=== PATIENT | male | born 1965 | race Caucasian/White ===

== ENCOUNTER → 2017-06-14 | Outpatient (CLI) | payer OTHER ==
[~2017-06-14] MED LIST: ALEVE220 MG PO; ALLERGY10 MG PO; ASPIRIN325 MG PO; HYDROCODONE BIT1 T11 PO; MEDROL DOSEPAK4 MG PO; NAPROSYN500 MG PO; PRILOSEC20 M2 PO; PRILOSEC20 MG PO; VITAMIN B121000 MC2 PO; ZANTAC 150150 MG PO
--- NOTE | ~2017-06-14 | PROC NOTE ---
[place], [place] PROCEDURE NOTE NAME: DICK NEFF UNIT #: [id number] ROOM: DOCTOR: IVY PFEIFFER BIRTHDATE: [birth year] DOS: 06/14/2017 REFERRING PHYSICIAN: Dr. Sullivan RADIOLOGIST: HISTORY OF PRESENT ILLNESS: The patient is a 51-year-old male who was referred for MBS by GI doctor due to frequent coughing during p.o. patient denied difficulty swallowing; however, he endorsed frequent coughing/throat clearing while eating. He felt that this occurs more with foods than liquids. He noted that he can begin coughing even when smelling foods. He also reported that the coughing continues throughout each meal, but stops when he has finished eating. He denied choking, recent weight loss, changes to his speech/voice, nasal regurgitation and odynophagia. He denied changes to his diet, but reported that he seems to be eating less in general. The patient endorsed occasional sticking sensation (mid chest) and occasional reflux for which he manages with Prilosec. The patient denied any other recent medical changes. GENERAL COMMENTS: The patient remained awake, alert and cooperative throughout this evaluation. ORAL MECHANISM/MOTOR SPEECH EXAM: Symmetry, strength, coordination, range of motion and accuracy of movement of upper/lower face, lips, jaw, tongue and palate were within functional limits. The patient with upper dentures and no lower dentition. Speech comprehensibility was 100%. AMRs/SMRs were within normal limits. MBSS METHODS: This exam was viewed in the lateral plane. The patient self fed the following barium impregnated consistencies: Single sips of thin liquids via cup x 3, teaspoons of pureed x 3 and bite of course solids x 1. ORAL PHASE: Adequate bolus acceptance with no anterior loss. AP bolus transit was timely and adequate. Mastication mildly prolonged, but complete. No oral residue appreciated. PHARYNGEAL PHASE: Initiation of the swallow response was timely. HLE was adequate in both superior and anterior planes with subsequent adequate epiglottic retroflexion. No aspiration or penetration was observed with any consistencies. However, the patient began throat clearing with trials of puree. This false positive coughing/throat clearing continued throughout length of exam; however, no contrast was observed in the pharynx or airway when coughing occurred, with the exception of trace residue maintained in vallecula x 1. This cleared with an additional swallow. UES unremarkable. AP ESOPHAGEAL SCREENING: The patient was turned AP and took bite of pureed. Bolus transit through distal esophagus appeared generally slow; however, no evidence of bolus redirection observed. [place], [place] PROCEDURE NOTE NAME: DICK NEFF UNIT #: [id number] ROOM: DOCTOR: IVY PFEIFFER BIRTHDATE: [birth year] IMPRESSION: The patient presents with normal oropharyngeal swallowing function with no aspiration/penetration across consistencies. However, he did present with frequent throat clearing throughout exam despite lack of contrast in pharynx or airway. Recommend additional GI followup to further evaluate. RECOMMENDATIONS: 1. Continue current diet. 2. Standard aspiration precautions, fully upright, awake and alert for all p.o., small bites/sips, oral care at least b.i.d. 3. Further GI evaluation. PLAN OF CARE: No further [employer] followup is indicated at this time. Thank you for consulting. Please contact the [employer] Department at [phone] with any questions/concerns. Ivy Gooden CM:PROCNOTE:PROCEDURE NOTE [id number] IVY PFEIFFER
== END ==
LOC: RAD 08:45
DX: R05 Cough (principal)

== ENCOUNTER 2017-11-13 03:29 | Emergency (ER) | payer OTHER ==
[~2017-11-13] VITALS: Ht 187.9 cm; Wt 81.6 kg
[2017-11-13 04:34] LABS: BASO # 0.1 10*3/uL (0.0-0.1); BASO % 1.1 % (0.0-1.0); EOS % 0.9 % (1.0-4.0); HEMATOCRIT 42.6 % (42.0-52.0); HEMOGLOBIN 13.8 g/dl (14.0-18.0); LYMPH # 1.6 10*3/uL (1.3-4.4); LYMPH % 34.1 % (27.0-41.0); MEAN CELL VOLUME 91.6 fl (80.0-94.0); MEAN CORPUSCULAR HGB 29.7 pg (27.0-31.0); MEAN CORPUSCULAR HGB CONC 32.4 g/dl (33.0-37.0); MONO # 0.3 10*3/uL (0.1-1.0); MONO % 6.8 % (3.0-9.0); NEUT # 2.6 10*3/uL (2.3-7.9); NEUT % 56.4 % (47.0-73.0); PLATELET COUNT AUTOMATED 134 10*3/uL (130-400); RED BLOOD COUNT 4.65 10*6/uL (4.50-5.90); RED CELL DISTRI WIDTH 13.1 % (0-14.5); WHITE BLOOD COUNT 4.6 10*3/uL (4.8-10.8)
[2017-11-13 04:49] LABS: ALBUMIN 3.9 gm/dl (3.1-4.5); ALKALINE PHOSPHATASE 63 U/L (45-117); BUN 17 mg/dl (7-24); CHLORIDE 107 mmol/L (98-107); CREATININE 1.23 mg/dL (0.70-1.30); LIPASE 162 U/L (73-393); POTASSIUM 3.3 mmol/L (3.5-5.1); SGOT/AST 11 IU/L (3-35); SGPT/ALT 17 U/L (12-78); SODIUM 143 mmol/L (136-145); TOTAL PROTEIN 6.9 gm/dL (6.4-8.2)
[2017-11-13 06:59] LABS: BILIRUBIN 1+ (NEGATIVE); BLOOD 3+ (NEGATIVE); CLARITY CLOUDY (CLEAR); COLOR YELLOW (YELLOW); GLUCOSE NEGATIVE (NEGATIVE); KETONE NEGATIVE (NEGATIVE); LEUKO ESTERASE NEGATIVE (NEGATIVE); NITRITE POSITIVE (NEGATIVE); PH 5.5 (5.0-9.0); SPECIFIC GRAVITY >= 1.030 (1.005-1.030)
[2017-11-13 07:15] LABS: MUCOUS 3+; RBC TNTC rbc/hpf (0-2)
== END 2017-11-13 07:40 | disposition short-term general hospital (02) ==
LOC: ED 03:29
PROVIDERS: Emergency Medicine Emergency Medical Services
DX: N20.1 Calculus of ureter (principal); N23 Unspecified renal colic; Z79.899 Other long term (current) drug therapy

== ENCOUNTER → 2017-11-27 | Outpatient (CLI) | payer OTHER | END | disposition home or self-care (01) | LOC: RAD 09:14 | DX: N20.0 Calculus of kidney (principal) ==

== ENCOUNTER → 2017-12-13 | Outpatient (CLI) | payer OTHER ==
[2017-12-13 10:21] LABS: BASO # 0.1 10*3/uL (0.0-0.1); BASO % 1.2 % (0.0-1.0); EOS # 0.1 10*3/uL (0.0-0.4); EOS % 1.5 % (1.0-4.0); HEMATOCRIT 42.2 % (42.0-52.0); HEMOGLOBIN 13.6 g/dl (14.0-18.0); LYMPH # 1.3 10*3/uL (1.3-4.4); LYMPH % 32.8 % (27.0-41.0); MEAN CELL VOLUME 92.1 fl (80.0-94.0); MEAN CORPUSCULAR HGB 29.7 pg (27.0-31.0); MEAN CORPUSCULAR HGB CONC 32.2 g/dl (33.0-37.0); MEAN PLATELET VOLUME 10.1 fl (9.6-12.3); MONO # 0.3 10*3/uL (0.1-1.0); MONO % 7.6 % (3.0-9.0); NEUT # 2.3 10*3/uL (2.3-7.9); NEUT % 56.7 % (47.0-73.0); PLATELET COUNT AUTOMATED 155 10*3/uL (130-400); RED BLOOD COUNT 4.58 10*6/uL (4.50-5.90); RED CELL DISTRI WIDTH 13.1 % (0-14.5); WHITE BLOOD COUNT 4.1 10*3/uL (4.8-10.8)
[2017-12-13 10:45] LABS: ALBUMIN 3.8 gm/dl (3.1-4.5); ALKALINE PHOSPHATASE 68 U/L (45-117); BUN 8 mg/dl (7-24); CHLORIDE 107 mmol/L (98-107); POTASSIUM 3.6 mmol/L (3.5-5.1); SGOT/AST 8 IU/L (3-35); SGPT/ALT 22 U/L (12-78); SODIUM 141 mmol/L (136-145); T3 UPTAKE 35 % (31-39); THYROXINE (T4) TOTAL 7.6 ug/dl (4.5-12.1); TOTAL PROTEIN 7.1 gm/dL (6.4-8.2)
[2017-12-13 11:33] LABS: BILIRUBIN NEGATIVE (NEGATIVE); BLOOD NEGATIVE (NEGATIVE); CLARITY CLEAR (CLEAR); COLOR YELLOW (YELLOW); GLUCOSE NEGATIVE (NEGATIVE); KETONE NEGATIVE (NEGATIVE); LEUKO ESTERASE NEGATIVE (NEGATIVE); NITRITE NEGATIVE (NEGATIVE); PH 5.5 (5.0-9.0); SPECIFIC GRAVITY 1.025 (1.005-1.030); UROBILINOGEN 0.2 E.U./dl (0.2-1.0)
[2017-12-13 11:44] LABS: MUCOUS TRACE
[2017-12-20 18:03] LABS: BUSHITE 0.08 ratio (0.00-3.00); CALCIUM, URINE 3.4 mg/dL (Not Estab.); CALCIUM, URINE 60.4 mg/24 hr (100.0-300.0); CITRIC ACID (CITRATE) 451 mg/24 hr (320-1240); CREATININE, URINE 1372.1 mg/24 hr (1000.0-2000.0); CREATININE, URINE 77.3 mg/dL (Not Estab.); MAGNESIUM, URINE <1.4 mg/dL (Not Estab.); MONOSODIUM URATE 0.37 ratio (0.00-4.00); OSMOLALITY, URINE 231 (300-900); SODIUM, URINE 26 mmol/L (Not Estab.); SODIUM, URINE 46 (58-337); STRUVITE 0.01 ratio (0.00-1.00); URIC ACID 1.38 ratio (0.00-1.20); URINE VOLUME 1775 mL/24 hr (800-1800); URINE VOLUME (PRESERVATIVE) 1775 mL/24 hr (800-1800); pH 24 HR URINE 5.6 (.)
== END | disposition home or self-care (01) ==
LOC: LAB 09:52
PROVIDERS: Urology
DX: D40.0 Neoplasm of uncertain behavior of prostate (principal); N20.0 Calculus of kidney; Z79.899 Other long term (current) drug therapy

== ENCOUNTER → 2018-08-12 | Outpatient (CLI) | payer OTHER | END | disposition home or self-care (01) | LOC: US 16:41 | DX: N28.89 Other specified disorders of kidney and ureter (principal); Z87.442 Personal history of urinary calculi ==

== ENCOUNTER → 2020-12-13 | Outpatient (CLI) | payer OTHER ==
[2020-12-13 15:34] LABS: BILIRUBIN Negative (Negative); BLOOD Negative (Negative); CLARITY Clear (Clear); COLOR Dark Yellow (Yellow); GLUCOSE Negative (Negative); KETONE Trace (Negative); LEUKO ESTERASE Negative (Negative); NITRITE Negative (Negative); PH 5.5 (4.5-8.0); SPECIFIC GRAVITY 1.025 (1.001-1.030)
[2020-12-13 15:36] LABS: BASO % 0.6 % (0.0-1.0); EOS # 0.1 10*3/uL (0.0-0.4); HEMATOCRIT 41.2 % (42.0-52.0); LYMPH # 1.4 10*3/uL (1.3-4.4); MEAN CORPUSCULAR HGB 30.2 pg (27.0-31.0); MEAN CORPUSCULAR HGB CONC 32.5 g/dl (33.0-37.0); MEAN PLATELET VOLUME 9.8 fl (9.6-12.3); MONO # 0.4 10*3/uL (0.1-1.0); MONO % 5.6 % (3.0-9.0); NEUT # 4.4 10*3/uL (2.3-7.9); NEUT % 70.2 % (47.0-73.0); PLATELET COUNT AUTOMATED 149 10*3/uL (130-400); RED BLOOD COUNT 4.43 10*6/uL (4.50-5.90); RED CELL DISTRI WIDTH 12.8 % (0-14.5); RETICULOCYTE % 1.47 % (0.50-2.50); WHITE BLOOD COUNT 6.2 10*3/uL (4.8-10.8)
[2020-12-13 15:51] LABS: ALBUMIN 3.8 gm/dl (3.1-4.5); ALKALINE PHOSPHATASE 67 U/L (45-117); BACTERIA 1+; BUN 15 mg/dl (7-24); CHLORIDE 107 mmol/L (98-107); CHOLESTEROL 165 mg/dL (<200); CREATININE 1.01 mg/dL (0.70-1.30); EPITHELIAL CELLS 0-2; GAMMA GLUTAMYL TRANSPEPTIDASE 9 U/L (15-85); IRON 69 ug/dL (65-175); LDL CHOLESTEROL 113 mg/dL (9-159); MUCOUS 2+; POTASSIUM 3.6 mmol/L (3.5-5.1); RBC 0-2 rbc/hpf (0-2); SGOT/AST 10 IU/L (3-35); SGPT/ALT 17 U/L (12-78); SODIUM 140 mmol/L (136-145); TOTAL IRON BINDING CAPACITY 369 ug/dl (250-450); TOTAL PROTEIN 6.9 gm/dL (6.4-8.2); TRIGLYCERIDES 124 mg/dl (<150); WBC 0-2 wbc/hpf (0-5)
[2020-12-13 15:58] LABS: THYROID STIM HORMONE (HS) 0.834 uIU/ml (0.358-4.75)
[2020-12-13 16:21] LABS: FERRITIN 22.7 ng/mL (22.0-322.0); VITAMIN D, 25-HYDROXY 33.1 ng/mL (30-100)
== END | disposition home or self-care (01) ==
LOC: LAB 15:03
PROVIDERS: ATTEND Family Medicine
DX: E78.5 Hyperlipidemia, unspecified (principal); R79.89 Other specified abnormal findings of blood chemistry; R53.83 Other fatigue; R74.8 Abnormal levels of other serum enzymes; E55.9 Vitamin D deficiency, unspecified

== ENCOUNTER → 2020-12-27 | Outpatient (CLI) | payer OTHER ==
[2020-12-27 13:05] LABS: BASO # 0.1 10*3/uL (0.0-0.1); BASO % 1.3 % (0.0-1.0); EOS % 0.8 % (1.0-4.0); LYMPH # 1.3 10*3/uL (1.3-4.4); LYMPH % 27.4 % (27.0-41.0); MEAN CELL VOLUME 92.4 fl (80.0-94.0); MEAN CORPUSCULAR HGB 30.3 pg (27.0-31.0); MEAN CORPUSCULAR HGB CONC 32.7 g/dl (33.0-37.0); MEAN PLATELET VOLUME 10.2 fl (9.6-12.3); MONO # 0.3 10*3/uL (0.1-1.0); MONO % 6.5 % (3.0-9.0); NEUT % 63.8 % (47.0-73.0); PLATELET COUNT AUTOMATED 145 10*3/uL (130-400); RED BLOOD COUNT 4.76 10*6/uL (4.50-5.90); RED CELL DISTRI WIDTH 12.7 % (0-14.5); RETICULOCYTE % 1.25 % (0.50-2.50); WHITE BLOOD COUNT 4.8 10*3/uL (4.8-10.8)
[2020-12-27 13:29] LABS: IRON 64 ug/dL (65-175); TOTAL IRON BINDING CAPACITY 377 ug/dl (250-450)
== END | disposition home or self-care (01) ==
LOC: LAB 12:38
PROVIDERS: ATTEND Family Medicine
DX: R79.89 Other specified abnormal findings of blood chemistry (principal); E78.5 Hyperlipidemia, unspecified

== ENCOUNTER 2021-01-24 17:51 | Emergency (ER) | payer OTHER ==
[~2021-01-24] VITALS: Ht 187.9 cm; Wt 80.7 kg
[2021-01-24] MEDS ORDERED: NAPROSYN500 MG PO (19:59)
== END 2021-01-24 20:11 | disposition home or self-care (01) ==
LOC: ED 17:51
DX: S50.01XA Contusion of right elbow, initial encounter (principal); Z79.899 Other long term (current) drug therapy; W22.8XXA Striking against or struck by other objects, initial encounter; Y93.89 Activity, other specified; Y92.89 Other specified places as the place of occurrence of the external cause; Y99.8 Other external cause status

== ENCOUNTER → 2021-05-19 | Outpatient (CLI) | payer OTHER | END | disposition home or self-care (01) | LOC: COVID19 15:16 | PROVIDERS: ATTEND Family Medicine | DX: U07.1 COVID-19 (principal) ==

== ENCOUNTER → 2021-12-07 | Outpatient (CLI) | payer OTHER ==
[2021-12-07 16:34] LABS: BILIRUBIN Negative (Negative); BLOOD Negative (Negative); CLARITY Clear (Clear); COLOR Yellow (Yellow); GLUCOSE Negative (Negative); KETONE Negative (Negative); LEUKO ESTERASE Trace (Negative); NITRITE Negative (Negative); PH 5.5 (4.5-8.0); SPECIFIC GRAVITY 1.015 (1.001-1.030)
[2021-12-07 16:35] LABS: BASO % 0.7 % (0.0-1.0); EOS % 0.3 % (1.0-4.0); LYMPH # 1.3 10*3/uL (1.3-4.4); LYMPH % 22.1 % (27.0-41.0); MEAN CELL VOLUME 92.4 fl (80.0-94.0); MEAN CORPUSCULAR HGB 30.6 pg (27.0-31.0); MEAN CORPUSCULAR HGB CONC 33.1 g/dl (33.0-37.0); MONO # 0.2 10*3/uL (0.1-1.0); NEUT # 4.3 10*3/uL (2.3-7.9); NEUT % 72.7 % (47.0-73.0); PLATELET COUNT AUTOMATED 145 10*3/uL (130-400); RED BLOOD COUNT 4.22 10*6/uL (4.50-5.90); RED CELL DISTRI WIDTH 13.1 % (0-14.5); RETICULOCYTE % 1.25 % (0.50-2.50)
[2021-12-07 16:42] LABS: BACTERIA 1+; MUCOUS 1+
[2021-12-07 16:52] LABS: ALKALINE PHOSPHATASE 67 U/L (45-117); BUN 10 mg/dl (7-24); CHLORIDE 109 mmol/L (98-107); CHOLESTEROL 141 mg/dL (<200); CREATININE 1.15 mg/dL (0.70-1.30); GAMMA GLUTAMYL TRANSPEPTIDASE 14 U/L (15-85); IRON 88 ug/dL (65-175); LDL CHOLESTEROL 90 mg/dL (9-159); POTASSIUM 3.1 mmol/L (3.5-5.1); SGOT/AST 12 IU/L (3-35); SGPT/ALT 13 U/L (12-78); SODIUM 142 mmol/L (136-145); TOTAL PROTEIN 6.7 gm/dL (6.4-8.2); TRIGLYCERIDES 126 mg/dl (<150)
[2021-12-07 16:58] LABS: THYROID STIM HORMONE (HS) 0.416 uIU/ml (0.358-4.75)
[2021-12-07 17:56] LABS: FERRITIN 15.1 ng/mL (22.0-322.0); VITAMIN D, 25-HYDROXY 24.3 ng/mL (30-100)
== END | disposition home or self-care (01) ==
LOC: LAB 15:54
PROVIDERS: ATTEND Family Medicine
DX: E78.5 Hyperlipidemia, unspecified (principal); E55.9 Vitamin D deficiency, unspecified; R79.89 Other specified abnormal findings of blood chemistry; R53.83 Other fatigue; R74.8 Abnormal levels of other serum enzymes

== ENCOUNTER 2022-02-13 12:13 | Emergency (ER) | payer OTHER ==
[2022-02-13 13:49] LABS: BILIRUBIN Negative (Negative); BLOOD Negative (Negative); CLARITY Clear (Clear); COLOR Yellow (Yellow); GLUCOSE Negative (Negative); KETONE Negative (Negative); LEUKO ESTERASE Negative (Negative); NITRITE Negative (Negative); PH 7.5 (4.5-8.0)
[2022-02-13 14:35] LABS: BACTERIA TRACE; RBC 0-2 rbc/hpf (0-2)
== END 2022-02-13 14:54 | disposition home or self-care (01) ==
LOC: ED 12:13
PROVIDERS: Nurse Practitioner Family
DX: M54.50 Low back pain, unspecified (principal); R51.9 Headache, unspecified; Z79.899 Other long term (current) drug therapy; V49.88XA Car occupant (driver) (passenger) injured in other specified transport accidents, initial encounter; Y93.89 Activity, other specified; Y92.413 State road as the place of occurrence of the external cause; Y99.9 Unspecified external cause status

== ENCOUNTER 2022-11-16 17:07 | Emergency (ER) | payer OTHER ==
[~2022-11-16] VITALS: Ht 187.9 cm; Wt 81.2 kg
== END 2022-11-16 19:16 | disposition home or self-care (01) ==
LOC: ED 17:07
DX: S60.032A Contusion of left middle finger without damage to nail, initial encounter (principal); Z79.899 Other long term (current) drug therapy; W22.8XXA Striking against or struck by other objects, initial encounter; Y93.89 Activity, other specified; Y92.89 Other specified places as the place of occurrence of the external cause; Y99.8 Other external cause status

== ENCOUNTER 2023-02-03 23:00 | Emergency (ER) | payer OTHER ==
[~2023-02-03] VITALS: Ht 187.9 cm; Wt 81.6 kg
[2023-02-04] MEDS ORDERED: NAPROXEN250 MG PO (00:10)
== END 2023-02-04 00:17 | disposition home or self-care (01) ==
LOC: ED 23:00
DX: S93.402A Sprain of unspecified ligament of left ankle, initial encounter (principal); K21.9 Gastro-esophageal reflux disease without esophagitis; X50.1XXA Overexertion from prolonged static or awkward postures, initial encounter; Y93.89 Activity, other specified; Y92.009 Unspecified place in unspecified non-institutional (private) residence as the place of occurrence of the external cause; Y99.8 Other external cause status

== ENCOUNTER → 2023-05-27 | Outpatient (CLI) | payer OTHER ==
[~2023-05-27] MED LIST changes: +NAPROXEN250 MG PO
[2023-05-27 16:41] LABS: BASO # 0.1 10*3/uL (0.0-0.1); BASO % 1.3 % (0.0-1.0); EOS % 0.8 % (1.0-4.0); HEMATOCRIT 40.4 % (42.0-52.0); LYMPH # 1.6 10*3/uL (1.3-4.4); LYMPH % 40.3 % (27.0-41.0); MEAN CELL VOLUME 95.3 fl (80.0-94.0); MEAN CORPUSCULAR HGB 30.4 pg (27.0-31.0); MEAN CORPUSCULAR HGB CONC 31.9 g/dl (33.0-37.0); MEAN PLATELET VOLUME 9.5 fl (9.6-12.3); MONO # 0.3 10*3/uL (0.1-1.0); MONO % 6.7 % (3.0-9.0); NEUT % 50.6 % (47.0-73.0); PLATELET COUNT AUTOMATED 152 10*3/uL (130-400); RED BLOOD COUNT 4.24 10*6/uL (4.50-5.90); RED CELL DISTRI WIDTH 12.8 % (0-14.5); RETICULOCYTE % 1.35 % (0.50-2.50); WHITE BLOOD COUNT 3.9 10*3/uL (4.8-10.8)
[2023-05-27 16:43] LABS: BILIRUBIN Negative (Negative); BLOOD Negative (Negative); CLARITY Clear (Clear); COLOR Yellow (Yellow); GLUCOSE Negative (Negative); KETONE Negative (Negative); LEUKO ESTERASE Negative (Negative); NITRITE Negative (Negative); PH 5.5 (4.5-8.0); SPECIFIC GRAVITY 1.015 (1.001-1.030); UROBILINOGEN 0.2 E.U./dl (0.0-1.0)
[2023-05-27 16:55] LABS: EPITHELIAL CELLS 0-2; RBC 0-2 rbc/hpf (0-2)
[2023-05-27 17:22] LABS: ALKALINE PHOSPHATASE 60 U/L (46-116); BUN 8 mg/dl (9-23); CHLORIDE 106 mmol/L (98-107); CHOLESTEROL 152 mg/dL (<200); GAMMA GLUTAMYL TRANSPEPTIDASE 16 U/L (0-73); LDL CHOLESTEROL 90 mg/dL (9-159); POTASSIUM 3.9 mmol/L (3.4-5.1); SGPT/ALT 11 U/L (5-49); T3 UPTAKE 36.6 % (22.4-36.7); THYROXINE (T4) TOTAL 5.3 ug/dl (4.5-10.9); TOTAL PROTEIN 6.9 gm/dL (6.0-8.0); TRIGLYCERIDES 181 mg/dl (<150); VITAMIN D, 25-HYDROXY 30.3 ng/mL (30-100)
== END | disposition home or self-care (01) ==
LOC: LAB 16:16
PROVIDERS: ATTEND Family Medicine
DX: R79.89 Other specified abnormal findings of blood chemistry (principal); R53.83 Other fatigue; E78.5 Hyperlipidemia, unspecified; E55.9 Vitamin D deficiency, unspecified

== ENCOUNTER → 2023-09-26 | Outpatient (CLI) | payer OTHER ==
[2023-09-26 13:04] LABS: HEMATOCRIT 37.7 % (42.0-52.0); MEAN CELL VOLUME 92.6 fl (80.0-94.0); MEAN CORPUSCULAR HGB 31.7 pg (27.0-31.0); MEAN CORPUSCULAR HGB CONC 34.2 g/dl (33.0-37.0); MEAN PLATELET VOLUME 9.9 fl (9.6-12.3); PLATELET COUNT AUTOMATED 146 10*3/uL (130-400); RED BLOOD COUNT 4.07 10*6/uL (4.50-5.90); RED CELL DISTRI WIDTH 12.8 % (0-14.5); RETICULOCYTE % 1.26 % (0.50-2.50); WHITE BLOOD COUNT 4.2 10*3/uL (4.8-10.8)
[2023-09-26 13:48] LABS: BASOPHILS 2 % (0-1); TOTAL CELLS COUNTED 100 #CELLS
[2023-09-26 13:49] LABS: PLATELET SUFFICIENCY NORMAL (NORMAL)
[2023-09-26 13:50] LABS: BURR CELLS FEW; OVALOCYTES FEW
[2023-09-27 08:10] LABS: TOTAL PROTEIN, SERUM 6.5 g/dL (6.0-8.5)
[2023-09-27 15:08] LABS: A/G RATIO 1.3 (0.7-1.7); ALBUMIN 3.7 g/dL (2.9-4.4); ALPHA-1-GLOBULIN 0.2 g/dL (0.0-0.4); ALPHA-2-GLOBULIN 0.7 g/dL (0.4-1.0); BETA GLOBULIN 0.9 g/dL (0.7-1.3); GLOBULIN, TOTAL 2.8 g/dL (2.2-3.9)
== END | disposition home or self-care (01) ==
LOC: CANPRECLI → LAB 12:16
PROVIDERS: ATTEND Family Medicine
DX: E78.5 Hyperlipidemia, unspecified (principal); R53.83 Other fatigue; R79.89 Other specified abnormal findings of blood chemistry

== ENCOUNTER 2024-07-18 12:40 | Emergency (ER) | payer OTHER ==
[~2024-07-18] VITALS: Ht 187.9 cm; Wt 79.4 kg
[2024-07-18] MEDS ORDERED: CITALOPRAM10 MG PO (12:48)
[2024-07-18] MEDS ORDERED: OMEPRAZOLE40 MG PO (12:48)
[2024-07-18] MEDS ORDERED: ASPIRIN81 M1 PO (12:49)
[2024-07-18] MEDS ORDERED: methylPREDNISolone sod succ 125 MG VIAL IM ONE (12:55)
[2024-07-18] MEDS ORDERED: METHOCARBAMOL 500 MG TAB PO ONE (12:55)
[2024-07-18] MEDS ORDERED: METHOCARBAMOL500 M1 PO (12:56)
[2024-07-18] MEDS ORDERED: PREDNISONE50 MG PO (12:56)
== END 2024-07-18 13:10 | disposition home or self-care (01) ==
LOC: ED 12:40
DX: S29.012A Strain of muscle and tendon of back wall of thorax, initial encounter (principal); K21.9 Gastro-esophageal reflux disease without esophagitis; Z79.82 Long term (current) use of aspirin; Z79.899 Other long term (current) drug therapy; X50.0XXA Overexertion from strenuous movement or load, initial encounter; Y93.89 Activity, other specified; Y92.89 Other specified places as the place of occurrence of the external cause; Y99.0 Civilian activity done for income or pay

== ENCOUNTER 2024-11-24 14:19 | Emergency (ER) | payer OTHER ==
[~2024-11-24] VITALS: Ht 187.9 cm; Wt 79.4 kg
[~2024-11-24 14:19] MED LIST changes: +ASPIRIN81 M1 PO; +CITALOPRAM10 MG PO; +METHOCARBAMOL500 M1 PO; +OMEPRAZOLE40 MG PO; +PREDNISONE50 MG PO
[2024-11-24] MEDS ORDERED: PREDNISONE20 M1 PO (15:18)
== END 2024-11-24 15:27 | disposition home or self-care (01) ==
LOC: ED 14:19
DX: L23.7 Allergic contact dermatitis due to plants, except food (principal); K21.9 Gastro-esophageal reflux disease without esophagitis; Z79.82 Long term (current) use of aspirin; Z79.899 Other long term (current) drug therapy

== ENCOUNTER → 2025-01-13 | Outpatient (CLI) | payer OTHER ==
[~2025-01-13] MED LIST changes: +PREDNISONE20 M1 PO
[2025-01-13 14:08] LABS: BASO # 0.0 10*3/uL (0.0-0.1); BASO % 0.9 % (0.0-1.0); BILIRUBIN Negative (Negative); BLOOD Negative (Negative); CLARITY Clear (Clear); COLOR Yellow (Yellow); EOS # 0.1 10*3/uL (0.0-0.4); EOS % 1.3 % (1.0-4.0); KETONE Trace (Negative); LEUKO ESTERASE Negative (Negative); MEAN CELL VOLUME 95.1 fl (80.0-94.0); MEAN CORPUSCULAR HGB 31.0 pg (27.0-31.0); MEAN PLATELET VOLUME 9.6 fl (9.6-12.3); MONO # 0.3 10*3/uL (0.1-1.0); MONO % 7.3 % (3.0-9.0); NEUT # 2.8 10*3/uL (2.3-7.9); NEUT % 62.5 % (47.0-73.0); NITRITE Negative (Negative); NUCLEATED RED BLOOD CELL 0.0 % (0.0-0.0); NUCLEATED RED BLOOD CELL 0.0 10*3/uL (0.0-0.0); PH 5.5 (4.5-8.0); PLATELET COUNT AUTOMATED 156 10*3/uL (130-400); RED CELL DISTRI WIDTH 13.3 % (0-14.5); RETICULOCYTE % 0.89 % (0.50-2.50); SPECIFIC GRAVITY 1.025 (1.001-1.030); UROBILINOGEN 1.0 E.U./dl (0.0-1.0)
[2025-01-13 14:34] LABS: BUN 13 mg/dl (9-23); LDL CHOLESTEROL 86 mg/dL (9-159); SGPT/ALT 13 U/L (5-49)
[2025-01-13 14:35] LABS: BACTERIA TRACE; MUCOUS 1+; WBC 0-2 wbc/hpf (0-5)
[2025-01-13 14:38] LABS: VITAMIN D, 25-HYDROXY 59.5 ng/mL (30-100)
[2025-01-14 16:08] LABS: ANTI-DSDNA ANTIBODIES 4 IU/mL (0-9)
== END ==
LOC: LAB 13:38
PROVIDERS: ATTEND Family Medicine
DX: E78.5 Hyperlipidemia, unspecified (principal); R79.89 Other specified abnormal findings of blood chemistry; E55.9 Vitamin D deficiency, unspecified